=== PATIENT | female | born 1950 | race American Indian/Alaskan Native ===

== ENCOUNTER 2022-06-24 15:49 | Inpatient (IN) | payer MEDICARE ==
[2022-06-24] MEDS ORDERED: cloNIDine 0.2 MG TAB PO ONE (16:40)
--- NOTE | 2022-06-24 16:41 | Emergency Department Report ---
HPI - General Chief Complaint: Dyspnea/Respdistress Time Seen by Provider: 06/24/22 16:14 - HPI HPI: Room 6 The patient is a 72-year-old female present with a chief complaint of chest pain and shortness of breath. Patient states her symptoms began 2 weeks ago with intermittent soreness across her chest associated with shortness of breath. Patient admits to diaphoresis with her chest pain but denies nausea/vomiting. Patient states she is also had a cough for the past 2 weeks has been nonproductive. Patient admits to subjective fever at home. Patient went to urgent care facility today was found to be hypoxic to 71% on room air. EMS was called and arrived to supplied supplemental O2. In the ED the patient states she currently feels okay. Patient has a history of end-stage renal disease and states she was last dialyzed yesterday ED Past Medical Hx - Past Medical History Hx Hypertension: Yes Hx Renal Disease: Yes (ESRD HD q. T, TH, SAT) - Surgical History Additional Surgical History: Left upper extremity fistula, left knee replacement, right hip repair - Family History Family history: no significant - Social History Smoking Status: Never Smoker Substance Use Type: None (Denies illicit drug use) ED Review of Systems ROS: Stated complaint: SOB/CHEST PAIN Other details as noted in HPI Constitutional: diaphoresis, fever (Subjective) Eyes: denies: eye pain Respiratory: cough, shortness of breath Cardiovascular: chest pain Endocrine: no symptoms reported Gastrointestinal: denies: nausea, vomiting Musculoskeletal: denies: back pain Neurological: denies: headache Physical Exam - Physical Exam Vital Signs: Vital Signs 06/24/22 16:10 Temperature 97.6 F Pulse Rate 78 Respiratory 14 Rate Blood Pressure 190/90 [Left] O2 Sat by Pulse 95 Oximetry Physical Exam: GENERAL: The patient is well-developed well-nourished female lying on stretcher not appearing to be in acute distress. [] HEENT: Normocephalic. Atraumatic. Extraocular motions are intact. Patient has moist mucous membranes. NECK: Supple. Trachea midline CHEST/LUNGS: Diminished at the bases bilaterally. There is no respiratory distress noted. HEART/CARDIOVASCULAR: Regular. There is no tachycardia. There is no gallop rub or murmur. ABDOMEN: Abdomen is soft, nontender. Patient has normal bowel sounds. There is no abdominal distention. SKIN: There is no rash. There is no edema. There is no diaphoresis. NEURO: The patient is awake, alert, and oriented. The patient is cooperative. The patient has no focal neurologic deficits. The patient has normal speech. G CS 15 MUSCULOSKELETAL: There is no evidence of acute injury. ED Course Vital Signs 06/24/22 16:10 Temperature 97.6 F Pulse Rate 78 Respiratory 14 Rate Blood Pressure 190/90 [Left] O2 Sat by Pulse 95 Oximetry ED Medical Decision Making - Lab Data Result diagrams: 06/24/22 16:46 06/24/22 16:46 Laboratory Tests 06/24/22 06/24/22 06/24/22 16:46 16:46 16:46 WBC 6.2 RBC 3.66 Hgb 10.5 Hct 32.6 MCV 89 MCH 29 MCHC 32 RDW 16.3 H Plt Count 279 Lymph % (Auto) 14.4 [place] % (Auto) 11.0 H Eos % (Auto) 4.3 Baso % (Auto) 0.4 Lymph # (Auto) 0.9 L [place] # (Auto) 0.7 Eos # (Auto) 0.3 Baso # (Auto) 0.0 Seg Neutrophils % 69.9 Seg Neutrophils # 4.3 PT 15.2 H INR 1.08 ABG pH ABG pCO2 ABG pO2 ABG HCO3 ABG O2 Saturation ABG O2 Content ABG Base Excess ABG Hemoglobin ABG Carboxyhemoglobin ABG Methemoglobin Oxyhemoglobin FiO2 Sodium 140 Potassium 4.7 Chloride 96.1 L Carbon Dioxide 31 H Anion Gap 18 BUN 26 H Creatinine 7.0 H Estimated GFR 7 BUN/Creatinine Ratio 4 Glucose 102 H Calcium 10.1 Total Creatine Kinase 43 CK-MB (CK-2) 2.0 CK-MB (CK-2) Rel Index 4.6 H Troponin T 0.056 H 06/24/22 18:19 WBC RBC Hgb Hct MCV MCH MCHC RDW Plt Count Lymph % (Auto) [place] % (Auto) Eos % (Auto) Baso % (Auto) Lymph # (Auto) [place] # (Auto) Eos # (Auto) Baso # (Auto) Seg Neutrophils % Seg Neutrophils # PT INR ABG pH 7.462 H ABG pCO2 44.7 ABG pO2 46.6 L ABG HCO3 31.2 H ABG O2 Saturation 80.5 L ABG O2 Content 9.8 ABG Base Excess 6.7 H ABG Hemoglobin 8.9 L ABG Carboxyhemoglobin 2.1 ABG Methemoglobin 0.5 Oxyhemoglobin 78.4 L FiO2 21 Sodium Potassium Chloride Carbon Dioxide Anion Gap BUN Creatinine Estimated GFR BUN/Creatinine Ratio Glucose Calcium Total Creatine Kinase CK-MB (CK-2) CK-MB (CK-2) Rel Index Troponin T - Differential Diagnosis ACS, pericarditis, GERD, pneumonia, bronchitis, respiratory failure Critical care attestation.: If time is entered above; I have spent that time in minutes in the direct care of this critically ill patient, excluding procedure time. ED Disposition Clinical Impression: Hypoxia, Shortness of breath, Pneumonia Disposition: ADMITTED INPATIENT Is pt being admited?: Yes Does the pt Need Aspirin: Yes Condition: Fair Instructions: Bacterial Pneumonia (ED) Time of Disposition: 18:42 (Care transferred to hospitalist (Dr. Isaac))
[2022-06-24 16:58] LABS: Basophils % (Auto) 0.4 % (0.0-1.8); Eosinophils # (Auto) 0.3 K/mm3 (0.0-0.4); Eosinophils % (Auto) 4.3 % (0.0-4.3); Hematocrit 32.6 % (30.3-42.9); Hemoglobin 10.5 gm/dl (10.1-14.3); Lymphocytes # (Auto) 0.9 K/mm3 (1.2-5.4); Lymphocytes % (Auto) 14.4 % (13.4-35.0); Mean Corpuscular HGB Conc 32 % (30-34); Mean Corpuscular Volume 89 fl (79-97); Monocytes # (Auto) 0.7 K/mm3 (0.0-0.8); Platelet Count 279 K/mm3 (140-440); Red Blood Count 3.66 M/mm3 (3.65-5.03); Red Cell Distribution Width 16.3 % (13.2-15.2)
[2022-06-24 17:07] LABS: INR 1.08 (0.87-1.13)
--- NOTE | 2022-06-24 17:19 | XRay Report ---
CHEST 1 VIEW INDICATION: chest pain. COMPARISON: 07/19/2018 FINDINGS: SUPPORT DEVICES: None. HEART: Within normal limits. LUNGS/PLEURA: Mild patchy left basilar airspace disease with clear right lung. ADDITIONAL FINDINGS: None. IMPRESSION: 1. Lung findings as above. Signer Name: Tito Jones MD Signed: 06/24/2022 5:14 PM Workstation Name: [id number]
[2022-06-24 17:46] LABS: Calcium 10.1 mg/dL (8.4-10.2)
[2022-06-24 18:32] LABS: ABG Base Excess 6.7 mmol/L (-2.0-3.0); ABG HCO3 31.2 mmol/L (20.0-26.0); ABG Methemoglobin 0.5 % (0.0-1.5); ABG Oxygen Saturation 80.5 % (95.0-99.0); ABG PCO2 44.7 mm Hg; ABG PH 7.462 pH Units (7.350-7.450); ABG PO2 46.6 mm Hg (80.0-90.0)
[2022-06-24] MEDS ORDERED: cefTRIAXone/NS 1 GM/50 ML 1 GM/50 ML BAG IV ONE (18:39)
[2022-06-24] MEDS ORDERED: AZITHROMYCIN/NS 500 MG/250 ML 500 MG/250 ML BAG IV ONE (18:39)
--- NOTE | 2022-06-24 18:45 | History and Physical Report ---
History of Present Illness Chief complaint: I am short of breath and I feel tired History of present illness: 72 YO Female with ESRD on HD(T,R,Sa), HTN, OA presents to ED for evaluation. Patient reports "I am short of breath, and I feel tired". Patient states that over the past 2 weeks she has experienced the aforementioned symptoms with worsening symptoms over the same timeframe. Patient acknowledges dry cough, subjective fever, shortness of breath. EMS was notified and upon arrival the patient was found to be in distress with a pulse oximetry of 71% on room air. Patient was placed on supplemental oxygen and transported to [facility] for further care and evaluation of the aforementioned symptoms. The patient was seen and evaluated in the emergency department. All lab and imaging studies reviewed. Patient found to have a pulse oximetry of 82% on room air which is consistent with acute hypoxemic respiratory failure. Chest x-ray revealed left-sided pneumonia. Patient also found to have end-stage renal disease, as well as solid hypertension. Patient admitted to medical floor and initiated on pneumonia protocol as well as coronavirus protocol. Nephrology team consulted in ED. Patient knowledges subjective fever but denies chills, chest pain, palpitation, skin rash, recent contact, known exposure to COVID-19. No prior admission for review. No medication listed at time of admission for reconciliation. Advanced care planning conducted in ED. Past History Past Medical History: arthritis, ESRD, hypertension Past Surgical History: total hip replacement, total knee replacement, Other (Dialysis access) Social history: , lives with family. denies: smoking, alcohol abuse, prescription drug abuse Family history: hypertension Medications and Allergies Allergies Allergy/AdvReac Type Severity Reaction Status Date / Time No Known Allergies Allergy Verified 06/24/22 16:12 Active Meds: Active Medications Azithromycin (Zithromax/Ns) 500 mg in 250 mls @ 250 mls/hr IV ONCE ONE; Protocol Stop: 06/24/22 19:38 Ceftriaxone Sodium (Rocephin/Ns 1 Gm/50 Ml) 1 gm in 50 mls @ 100 mls/hr IV ONCE ONE; Protocol Stop: 06/24/22 19:08 Review of Systems Constitutional: fever, weakness, malaise, no weight loss, no weight gain Ears, nose, mouth and throat: no ear pain, no ear discharge, no tinnitis, no decreased hearing Cardiovascular: shortness of breath, no chest pain Respiratory: cough, shortness of breath, no cough with sputum, no excessive sputum, no hemoptysis Gastrointestinal: no abdominal pain, no nausea, no vomiting, no diarrhea Genitourinary Female: no pelvic pain, no flank pain, no dysuria, no urinary frequency, no urgency Rectal: no pain, no incontinence, no bleeding Musculoskeletal: no neck stiffness, no neck pain, no shooting arm pain, no arm numbness/tingling, no low back pain Integumentary: no rash, no pruritis, no redness, no sores, no wounds Neurological: no head injury, no transient paralysis, no paralysis, no weakness, no parathesias, no numbness Psychiatric: no anxiety, no memory loss, no change in sleep habits, no sleep disturbances, no insomnia, no hypersomnia, no change in appetite, no change in libido Endocrine: no cold intolerance, no heat intolerance, no polydipsia, no excessive sweating Hematologic/Lymphatic: no easy bruising, no easy bleeding, no lymphedema Allergic/Immunologic: no allergic rhinitis, no wheezing, no angioedema Exam - Constitutional Vitals: Temp Pulse Resp BP Pulse Ox 97.6 F 78 14 190/90 95 06/24/22 16:10 06/24/22 16:10 06/24/22 16:10 06/24/22 16:10 06/24/22 16:10 General appearance: Present: mild distress - EENT Eyes: Present: PERRL ENT: hearing intact, clear oral mucosa - Neck Neck: Present: supple, normal ROM - Respiratory Respiratory effort: labored Respiratory: left: rhonchi, bilateral: diminished - Cardiovascular Heart Sounds: Present: S1 & S2. Absent: rub, click - Extremities Extremities: pulses symmetrical, No edema Peripheral Pulses: within normal limits - Abdominal General gastrointestinal: Present: soft, non-tender, non-distended, normal bowel sounds Female genitourinary: Present: normal - Integumentary Integumentary: Present: clear, warm, dry - Musculoskeletal Musculoskeletal: gait normal, strength equal bilaterally - Psychiatric Psychiatric: appropriate mood/affect, intact judgment & insight - Neurologic Neurologic: CNII-XII intact, moves all extremities HEART Score - HEART Score Troponin: Troponin T 0.056 ng/mL (0.00-0.029) H 06/24/22 16:46 Results - Labs CBC & Chem 7: 06/24/22 16:46 06/24/22 16:46 Labs: Abnormal lab results 06/24/22 06/24/22 06/24/22 Range/Units 16:46 16:46 16:46 RDW 16.3 H (13.2-15.2) % [place] % (Auto) 11.0 H (0.0-7.3) % Lymph # (Auto) 0.9 L (1.2-5.4) K/mm3 PT 15.2 H (12.2-14.9) Sec. ABG pH (7.350-7.450) pH Units ABG pO2 (80.0-90.0) mm Hg ABG HCO3 (20.0-26.0) mmol/L ABG O2 Saturation (95.0-99.0) % ABG Base Excess (-2.0-3.0) mmol/L ABG Hemoglobin (12.0-16.0) gm/dl Oxyhemoglobin (95.0-99.0) % Chloride 96.1 L (98-107) mmol/L Carbon Dioxide 31 H (22-30) mmol/L BUN 26 H (7-17) mg/dL Creatinine 7.0 H (0.6-1.2) mg/dL Glucose 102 H (65-100) mg/dL CK-MB (CK-2) Rel Index 4.6 H (0-4) Troponin T 0.056 H (0.00-0.029) ng/mL 06/24/22 Range/Units 18:19 RDW (13.2-15.2) % [place] % (Auto) (0.0-7.3) % Lymph # (Auto) (1.2-5.4) K/mm3 PT (12.2-14.9) Sec. ABG pH 7.462 H (7.350-7.450) pH Units ABG pO2 46.6 L (80.0-90.0) mm Hg ABG HCO3 31.2 H (20.0-26.0) mmol/L ABG O2 Saturation 80.5 L (95.0-99.0) % ABG Base Excess 6.7 H (-2.0-3.0) mmol/L ABG Hemoglobin 8.9 L (12.0-16.0) gm/dl Oxyhemoglobin 78.4 L (95.0-99.0) % Chloride (98-107) mmol/L Carbon Dioxide (22-30) mmol/L BUN (7-17) mg/dL Creatinine (0.6-1.2) mg/dL Glucose (65-100) mg/dL CK-MB (CK-2) Rel Index (0-4) Troponin T (0.00-0.029) ng/mL Assessment and Plan - Patient Problems (1) Acute hypoxemic respiratory failure Current Visit: Yes Status: Acute Plan to address problem: Chest x-ray, supplemental oxygen, pulse oximetry, nebulizer therapy, pulmonary toilet. Noninvasive positive pressure ventilation as clinically indicated. Will consider high flow supplemental oxygen if patient is unable to maintain pulse oximetry on supplemental oxygen via nasal cannula. (2) Pneumonia Current Visit: Yes Status: Acute Plan to address problem: Pneumonia protocol: Chest x-ray, CBC, CMP, supplemental oxygen, pulse oximetry, nebulizer therapy, IV antibiotic therapy. (3) Suspected 2019-nCoV infection Current Visit: Yes Status: Acute Plan to address problem: COVID-19 protocol: Vitamin C therapy, vitamin D therapy, zinc therapy, prophylactic anticoagulation, supplemental oxygen, pulse oximetry, nebulizer therapy, IV steroid therapy. IV antibiotic therapy. (4) End stage renal disease Current Visit: Yes Status: Acute Plan to address problem: Nephrology team consulted in ED, dialysis as per renal team. Strict I's/O, mon itoring output every shift monitor daily weight, afterload reduction, blood pressure control, dialysis as per renal team, avoid nephrotoxic agents. (5) Accelerated hypertension Current Visit: Yes Status: Acute Plan to address problem: Monitor blood pressure every shift, continue medical management, IV hydralazine every 6 hours as needed for systolic blood pressure greater than equal 155 mmHg. (6) DVT prophylaxis Current Visit: Yes Status: Acute Plan to address problem: SCDs bilateral lower extremities while in bed, prophylactic anticoagulation (7) Advance care planning Current Visit: Yes Status: Acute Plan to address problem: Disease education conducted, care plan discussed, diagnoses discussed, prognosis discussed, patient is full code. Patient and acknowledged understanding and agreement with care plan, +30 minutes. (8) Preventative health care Current Visit: Yes Status: Acute Plan to address problem: Patient counseled regarding home safety precautions, outpatient follow-up with primary care physician for all age and risk factor appropriate screening test. +30 minutes.
[2022-06-24] MEDS ORDERED: ONDANSETRON 4 MG/2 ML INJ IV PRN (19:15)
[2022-06-24] MEDS ORDERED: ALBUTEROL 2.5 MG/3 ML NEBU IH PRN (19:15)
[2022-06-24] MEDS ORDERED: ACETAMINOPHEN 325 MG TAB PO PRN (19:15)
[2022-06-24] MEDS ORDERED: MORPHINE 4 MG/1 ML INJ IV PRN (19:15)
[2022-06-24 19:54] LABS: Chol/HDL Ratio 1.89 %
[2022-06-24] MEDS: cefTRIAXone/NS 2 GM/100 ML 2 GM/100 ML BAG IV SCH (21:01)
[2022-06-24] MEDS: methylPREDNISolone Sod Succinate 40 MG/1 ML INJ IV SCH (21:01)
[2022-06-25] MEDS: HEPARIN 5,000 UNIT/1 ML VIAL SUB-Q SCH ×3 (00:18→22:01)
[2022-06-25] MEDS: ASCORBIC ACID 500 MG TAB PO SCH ×3 (00:19→22:01)
[2022-06-25] MEDS: ZINC SULFATE 220 MG CAP PO SCH ×3 (00:19→22:01)
[2022-06-25] MEDS: methylPREDNISolone Sod Succinate 40 MG/1 ML INJ IV SCH ×3 (05:47→22:02)
[2022-06-25 07:25] LABS: Albumin 4.4 g/dL (3.9-5); Calcium 9.9 mg/dL (8.4-10.2)
--- NOTE | 2022-06-25 08:28 | Consultation ---
History of Present Illness - Reason for Consult Consult date: 06/25/22 end stage renal disease - History of Present Illness The patient is a 72 YO female with history of HTN, Anemia, OA and ESRD on HD(TTS) who presented to [facility] ED 06/24/22 with c/o short of breath and feeling tired for the past 2 weeks. Patient acknowledges dry cough and subjective fever. Patient denies chest pain, palpitation, skin rash, N, V, D, abd pain ot leg swelling. Upon EMS arrival the patient was found with a pulse oximetry of 71% on room air. Patient was placed on supplemental oxygen. Chest x-ray revealed left-sided pneumonia. Nephrology consulted for Esrd management. Past History Past Medical History: anemia, arthritis, dialysis, ESRD, hypertension Past Surgical History: total hip replacement, total knee replacement, Other (Dialysis access) Social history: , lives with family. denies: smoking, alcohol abuse, prescription drug abuse Family history: hypertension Medications and Allergies Allergies Allergy/AdvReac Type Severity Reaction Status Date / Time Sulfa (Sulfonamide Allergy Severe Hives Verified 06/25/22 14:48 Antibiotics) Home Medications Medication Instructions Recorded Confirmed Last Taken Type Desipramine HCl 25 mg PO QDAY 06/25/22 06/25/22 Unknown History Gabapentin [Neurontin] 100 mg PO BID 06/25/22 06/25/22 Unknown History Metoprolol Xl [Metoprolol 100 mg PO QDAY 06/25/22 06/25/22 Unknown History SUCCINATE ER TAB] NIFEdipine [Nifedipine ER] 90 mg PO BID 06/25/22 06/25/22 Unknown History Sevelamer Carbonate [Renvela] 2,400 mg PO TIDWM 06/25/22 06/25/22 Unknown History Active Meds: Active Medications Acetaminophen (Acetaminophen 325 Mg Tab) 650 mg PO Q4H PRN PRN Reason: Pain MILD(1-3)/Fever >100.5/JAIN Albuterol (Albuterol 2.5 Mg/3 Ml Nebu) 2.5 mg IH Q4HRT PRN PRN Reason: Shortness Of Breath Ascorbic Acid (Ascorbic Acid 500 Mg Tab) 500 mg PO BID RUDOLPH Last Admin: 06/25/22 00:19 Dose: 500 mg Azithromycin (Azithromycin 250 Mg Tab) 500 mg PO QDAY [facility]; Protocol Cholecalciferol (Cholecalciferol (Vit D3) 1000 Unit (25 Mcg) Tab) 1,000 unit PO QDAY [facility] Heparin Sodium (Porcine) (Heparin 5,000 Unit/1 Ml Vial) 5,000 unit SUB-Q Q12HR [facility] Last Admin: 06/25/22 00:18 Dose: 5,000 unit Hydralazine HCl (Hydralazine 20 Mg/1 Ml Inj) 10 mg IV Q6HR PRN PRN Reason: Hypertension Ceftriaxone Sodium (Rocephin/Ns 2 Gm/100 Ml) 2 gm in 100 mls @ 200 mls/hr IV Q24H [facility]; Protocol Last Infusion: 06/25/22 00:20 Dose: Infused Methylprednisolone Sodium Succinate (Methylprednisolone Sod Succinate 40 Mg/1 Ml Inj) 40 mg IV Q8H [facility] Last Admin: 06/25/22 05:47 Dose: 40 mg Morphine Sulfate (Morphine 4 Mg/1 Ml Inj) 2 mg IV Q8H PRN PRN Reason: Pain , Severe (7-10) Ondansetron HCl (Ondansetron 4 Mg/2 Ml Inj) 4 mg IV Q8H PRN PRN Reason: Nausea And Vomiting Oxycodone/Acetaminophen (Oxycodone /Acetaminophen 5-325mg Tab) 1 tab PO Q16H PRN PRN Reason: Pain, Moderate (4-6) Sodium Chloride (Sodium Chloride 0.9% 10 Ml Flush Syringe) 10 ml IV BID [facility] Last Admin: 06/25/22 00:21 Dose: 10 ml Sodium Chloride (Sodium Chloride 0.9% 10 Ml Flush Syringe) 10 ml IV PRN PRN PRN Reason: LINE FLUSH Stop: 06/29/22 18:45 Zinc Sulfate (Zinc Sulfate 220 Mg Cap) 220 mg PO BID [facility] Last Admin: 06/25/22 00:19 Dose: 220 mg Review of Systems All systems: negative Exam - Vital Signs Vital signs: Vital Signs Temp Pulse Resp BP Pulse Ox 97.6 F 78 14 190/90 95 06/24/22 16:10 06/24/22 16:10 06/24/22 16:10 06/24/22 16:10 06/24/22 16:10 Results - Lab Results 06/24/22 16:46 06/25/22 06:51 Most recent lab results ABG pH 7.462 pH Units (7.350-7.450) H 06/24/22 18:19 ABG pCO2 44.7 mm Hg 06/24/22 18:19 ABG pO2 46.6 mm Hg (80.0-90.0) L 06/24/22 18:19 ABG HCO3 31.2 mmol/L (20.0-26.0) H 06/24/22 18:19 ABG O2 Saturation 80.5 % (95.0-99.0) L 06/24/22 18:19 Calcium 9.9 mg/dL (8.4-10.2) 06/25/22 06:51 Assessment and Plan 1. ESRD: Patient is on maintenance HD. Last outpatient HD 06/23. Meds dosage based on GFR. Hemodialysis: today. 2. FEN: Hyperkalemia, HD today. UF with HD as tolerated. Monitor lytes and volume status. 3. L sided PNA: Per protocol. Covid negative. 4. Acute hypoxemic respiratory failure, POA: Likely 2/2 PNA. Covid negative. Supplemental oxygen, nebulizer therapy, pulmonary toilet. 5. Normocytic anemia: Monitor H&H, transfusion if needed. Epogen with HD. 6. Hypertension. 7. Elevated bl glucose: Monitor. Subjective: Patient was seen and examined at the bedside. Examination: General appearance: well-developed, well nourished, no distress HEENT: ATNC, no icterus Neck: trachea midline Respiratory: faint rales Cardiology: regular, S1S2, no murmur Gastrointestinal: soft, normoactive bowel sounds, not tender, ND Integumentary: no rash Neurologic: AO, conversing, able to move extremities Ext: no edema noted Hemodialysis access: L arm AVF
[2022-06-25] MEDS ORDERED: SODIUM CHLORIDE 0.9% 100 ML IV PRN (09:00)
[2022-06-25] MEDS: CHOLECALCIFEROL (VIT D3) 1000 UNIT (25 mcg) TAB PO SCH (09:17)
[2022-06-25] MEDS: AZITHROMYCIN 250 MG TAB PO SCH (09:17)
[2022-06-25] MEDS: oxyCODONE /ACETAMINOPHEN 5-325MG TAB PO PRN (09:20)
[2022-06-25] MEDS ORDERED: HEPARIN 10,000 UNITS/10 ML VIAL IV PRN (09:30)
[2022-06-25 10:34] LABS: Hepatitis B Surface Antigen Non-Reactive (Negative); Hepatitis C Virus Antibody Non-Reactive (NonReactive)
--- NOTE | 2022-06-25 16:21 | Progress Note ---
Assessment and Plan 72 YO Female with ESRD on HD(T,R,Sa), HTN, OA presents to ED for short of breath, and feeling tired. Patient found to have a pulse oximetry of 82% on room air which is consistent with acute hypoxemic respiratory failure. Chest x-ray revealed left-sided pneumonia. Admitted for further Mx. 06/25: neg for COVID, cont iv abx. nephrology consulted, pending HD Assessment and Plan: -- Acute hypoxemic respiratory failure likely due to LLL PNA cont supplemental oxygen, pulse oximetry, nebulizer therapy, pulmonary toilet. Noninvasive positive pressure ventilation as clinically indicated. Will consider high flow supplemental oxygen if patient is unable to maintain pulse oximetry on supplemental oxygen via nasal cannula. --LLL Pneumonia Pneumonia protocol: Chest x-ray, CBC, CMP, supplemental oxygen, pulse oximetry, nebulizer therapy, IV antibiotic therapy. -- Suspected 2019-nCoV infection ruled out with neg test -- End stage renal disease Nephrology team consulted in ED, dialysis as per renal team. Strict I's/O, monitoring output every shift monitor daily weight, afterload reduction, blood pressure control, dialysis as per renal team, avoid nephrotoxic agents. -- Accelerated hypertension Monitor blood pressure every shift, continue medical management, IV hydralazine every 6 hours as needed for systolic blood pressure greater than equal 155 mmHg. -- DVT prophylaxis SCDs bilateral lower extremities while in bed, prophylactic anticoagulation --Advance care planning Disease education conducted, care plan discussed, diagnoses discussed, prognosis discussed, patient is full code. Patient and acknowledged understanding and agreement with care plan, +30 minutes. -- Preventative health care Patient counseled regarding home safety precautions, outpatient follow-up with primary care physician for all age and risk factor appropriate screening test. +30 minutes. Subjective Date of service: 06/25/22 Interval history: Patient seen and examined. Medical records and medication list reviewed. No acute event overnight noted by the RN. Patient c/o exertional difficulty breathing and cough. Patient is tolerating diet. neg for COVID Discussed plan of care at bedside with patient. Objective - Exam Narrative Exam: GENERAL: elderly WF lying on bed appeared to be in no discomfort. HEENT: Normocephalic. Atraumatic. No conjunctival congestion or icterus. Patient has moist mucous membranes. NECK: Supple. Trachea midline. CHEST/LUNGS:diminished BS auscultated bilaterally, on NC O2 HEART/CARDIOVASCULAR: Regular in rate and rhythm. S1 and S2 positive. ABDOMEN: Abdomen is soft, nontender. Patient has normal bowel sounds. SKIN: There is no rash. Warm and dry. NEURO: No focal motor deficit. Follows command. MUSCULOSKELETAL: No joint effusion or tenderness. EXTRIMITY: No edema, no cyanosis or clubbing. PSYCH: Cooperative. - Constitutional Vitals: Vital Signs - 12hr 06/25/22 06/25/22 06/25/22 09:10 10:00 10:22 Temperature 97.7 F Pulse Rate 70 Respiratory 16 Rate Blood Pressure 188/85 O2 Sat by Pulse 98 100 97 Oximetry O2 Sat by Pulse Oximetry [ Bilateral Throughout] 06/25/22 14:39 Temperature Pulse Rate Respiratory Rate Blood Pressure O2 Sat by Pulse Oximetry O2 Sat by Pulse 99 Oximetry [ Bilateral Throughout] - Labs CBC & Chem 7: 06/24/22 16:46 06/26/22 10:23 Labs: Abnormal lab results 06/24/22 06/24/22 06/24/22 Range/Units 16:46 16:46 16:46 RDW 16.3 H (13.2-15.2) % [place] % (Auto) 11.0 H (0.0-7.3) % Lymph # (Auto) 0.9 L (1.2-5.4) K/mm3 PT 15.2 H (12.2-14.9) Sec. ABG pH (7.350-7.450) pH Units ABG pO2 (80.0-90.0) mm Hg ABG HCO3 (20.0-26.0) mmol/L ABG O2 Saturation (95.0-99.0) % ABG Base Excess (-2.0-3.0) mmol/L ABG Hemoglobin (12.0-16.0) gm/dl Oxyhemoglobin (95.0-99.0) % Potassium (3.6-5.0) mmol/L Chloride 96.1 L (98-107) mmol/L Carbon Dioxide 31 H (22-30) mmol/L BUN 26 H (7-17) mg/dL Creatinine 7.0 H (0.6-1.2) mg/dL Glucose 102 H (65-100) mg/dL Alkaline Phosphatase (35-129) units/L CK-MB (CK-2) Rel Index 4.6 H (0-4) Troponin T 0.056 H (0.00-0.029) ng/mL LDL Cholesterol Direct 39 L (50-130) mg/dL HDL Cholesterol 74 H (40-59) mg/dL 06/24/22 06/25/22 Range/Units 18:19 06:51 RDW (13.2-15.2) % [place] % (Auto) (0.0-7.3) % Lymph # (Auto) (1.2-5.4) K/mm3 PT (12.2-14.9) Sec. ABG pH 7.462 H (7.350-7.450) pH Units ABG pO2 46.6 L (80.0-90.0) mm Hg ABG HCO3 31.2 H (20.0-26.0) mmol/L ABG O2 Saturation 80.5 L (95.0-99.0) % ABG Base Excess 6.7 H (-2.0-3.0) mmol/L ABG Hemoglobin 8.9 L (12.0-16.0) gm/dl Oxyhemoglobin 78.4 L (95.0-99.0) % Potassium 5.6 H (3.6-5.0) mmol/L Chloride 95.7 L (98-107) mmol/L Carbon Dioxide (22-30) mmol/L BUN 32 H (7-17) mg/dL Creatinine 8.2 H (0.6-1.2) mg/dL Glucose 182 H (65-100) mg/dL Alkaline Phosphatase 259 H (35-129) units/L CK-MB (CK-2) Rel Index (0-4) Troponin T (0.00-0.029) ng/mL LDL Cholesterol Direct (50-130) mg/dL HDL Cholesterol (40-59) mg/dL HEART Score - HEART Score Troponin: Troponin T 0.056 ng/mL (0.00-0.029) H 06/24/22 16:46
[2022-06-25] MEDS: cefTRIAXone/NS 2 GM/100 ML 2 GM/100 ML BAG IV SCH (22:02)
[2022-06-26] MEDS: methylPREDNISolone Sod Succinate 40 MG/1 ML INJ IV SCH ×3 (05:58→22:35)
[2022-06-26] MEDS: hydrALAZINE 20 MG/1 ML INJ IV PRN ×2 (05:59→22:41)
--- NOTE | 2022-06-26 09:23 | Progress Note ---
Assessment and Plan 1. ESRD: Patient is on maintenance HD. Last outpatient HD 06/23. Meds dosage based on GFR. Hemodialysis: 06/25. 2. FEN: Hyperkalemia, on HD. UF with HD as tolerated. Monitor lytes and volume status. 3. L sided PNA: Per protocol. Covid negative. 4. Acute hypoxemic respiratory failure, POA: Likely 2/2 PNA. Covid negative. Supplemental oxygen, nebulizer therapy, pulmonary toilet. 5. Normocytic anemia: Monitor H&H, transfusion if needed. Epogen with HD. 6. Hypertension. 7. Elevated bl glucose: Monitor. Subjective: Patient was seen and examined at the bedside. Doing ok. Family member at the bedside. Examination: General appearance: well-developed, well nourished, no distress HEENT: ATNC, no icterus Neck: trachea midline Respiratory: faint rales Cardiology: regular, S1S2, no murmur Gastrointestinal: soft, normoactive bowel sounds, not tender, ND Integumentary: no rash Neurologic: AO, conversing, able to move extremities Ext: no edema noted Hemodialysis access: L arm AVF Subjective Date of service: 06/26/22 Objective - Vital Signs Vital signs: Vital Signs - 12hr 06/25/22 06/26/22 06/26/22 22:00 05:33 05:59 Temperature 97.9 F Pulse Rate 65 65 Respiratory 16 Rate Blood Pressure 169/79 169/4 Blood Pressure [Left] O2 Sat by Pulse 96 99 Oximetry 06/26/22 06:00 Temperature Pulse Rate 65 Respiratory Rate Blood Pressure Blood Pressure 169/79 [Left] O2 Sat by Pulse Oximetry - Lab 06/24/22 16:46 06/26/22 10:23 Most recent lab results ABG pH 7.462 pH Units (7.350-7.450) H 06/24/22 18:19 ABG pCO2 44.7 mm Hg 06/24/22 18:19 ABG pO2 46.6 mm Hg (80.0-90.0) L 06/24/22 18:19 ABG HCO3 31.2 mmol/L (20.0-26.0) H 06/24/22 18:19 ABG O2 Saturation 80.5 % (95.0-99.0) L 06/24/22 18:19 Calcium 9.9 mg/dL (8.4-10.2) 06/25/22 06:51 Medications & Allergies - Medications Allergies/Adverse Reactions: Allergies Sulfa (Sulfonamide Antibiotics) Allergy (Severe, Verified 06/25/22 14:48) Hives sulfa/sulfur containing products Home Medications: Home Medications Medication Instructions Recorded Confirmed Last Taken Type Desipramine HCl 25 mg PO QDAY 06/25/22 06/25/22 Unknown History Gabapentin [Neurontin] 100 mg PO BID 06/25/22 06/25/22 Unknown History Metoprolol Xl [Metoprolol 100 mg PO QDAY 06/25/22 06/25/22 Unknown History SUCCINATE ER TAB] NIFEdipine [Nifedipine ER] 90 mg PO BID 06/25/22 06/25/22 Unknown History Sevelamer Carbonate [Renvela] 2,400 mg PO TIDWM 06/25/22 06/25/22 Unknown History Active Medications: Generic Name Dose Route Start Last Admin Trade Name Freq PRN Reason Stop Dose Admin Acetaminophen 650 mg 06/24/22 19:15 Acetaminophen 325 Mg Tab PO Q4H PRN Pain MILD(1-3)/Fever >100.5/JAIN Albuterol 2.5 mg 06/24/22 19:15 Albuterol 2.5 Mg/3 Ml Nebu IH Q4HRT PRN Shortness Of Breath Ascorbic Acid 500 mg 06/24/22 22:00 06/25/22 22:01 Ascorbic Acid 500 Mg Tab PO 500 mg BID [facility] Administration Azithromycin 500 mg 06/25/22 10:00 06/25/22 09:17 Azithromycin 250 Mg Tab PO 06/28/22 10:01 500 mg QDAY [facility] Administration Protocol Cholecalciferol 1,000 unit 06/25/22 10:00 06/25/22 09:17 Cholecalciferol (Vit D3) 1000 Unit (25 Mcg) Tab PO 1,000 unit QDAY [facility] Administration Heparin Sodium (Porcine) 5,000 unit 06/24/22 22:00 06/25/22 22:01 Heparin 5,000 Unit/1 Ml Vial SUB-Q 5,000 unit Q12HR [facility] Administration Heparin Sodium (Porcine) 3,000 unit 06/25/22 09:30 Heparin 10,000 Units/10 Ml Vial IV ANURAG PRN hemodialysis Hydralazine HCl 10 mg 06/24/22 19:15 06/26/22 05:59 Hydralazine 20 Mg/1 Ml Inj IV 10 mg Q6HR PRN Administration Hypertension Ceftriaxone Sodium 2 gm in 100 mls @ 200 mls/hr 06/24/22 19:00 06/25/22 22:02 Rocephin/Ns 2 Gm/100 Ml IV 06/28/22 19:29 100 mls/hr Q24H [facility] Administration Protocol Sodium Chloride 100 mls @ 999 mls/hr 06/25/22 09:00 Nacl 0.9% IV ANURAG PRN Hypotension Methylprednisolone Sodium Succinate 40 mg 06/24/22 20:00 06/26/22 05:58 Methylprednisolone Sod Succinate 40 Mg/1 Ml Inj IV 40 mg Q8H [facility] Administration Morphine Sulfate 2 mg 06/24/22 19:15 Morphine 4 Mg/1 Ml Inj IV Q8H PRN Pain , Severe (7-10) Ondansetron HCl 4 mg 06/24/22 19:15 Ondansetron 4 Mg/2 Ml Inj IV Q8H PRN Nausea And Vomiting Oxycodone/Acetaminophen 1 tab 06/24/22 19:15 06/25/22 09:20 Oxycodone /Acetaminophen 5-325mg Tab PO 1 tab Q16H PRN Administration Pain, Moderate (4-6) Sodium Chloride 10 ml 06/24/22 22:00 06/25/22 22:03 Sodium Chloride 0.9% 10 Ml Flush Syringe IV 10 ml BID [facility] Administration Sodium Chloride 10 ml 06/24/22 18:46 Sodium Chloride 0.9% 10 Ml Flush Syringe IV 06/29/22 18:45 PRN PRN LINE FLUSH Zinc Sulfate 220 mg 06/24/22 22:00 06/25/22 22:01 Zinc Sulfate 220 Mg Cap PO 220 mg BID [facility]OL[facility] Administration
[2022-06-26] MEDS: ZINC SULFATE 220 MG CAP PO SCH ×2 (10:42→22:34)
[2022-06-26] MEDS: CHOLECALCIFEROL (VIT D3) 1000 UNIT (25 mcg) TAB PO SCH (10:43)
[2022-06-26] MEDS: AZITHROMYCIN 250 MG TAB PO SCH (10:43)
[2022-06-26] MEDS: ASCORBIC ACID 500 MG TAB PO SCH ×2 (10:43→22:34)
[2022-06-26] MEDS: HEPARIN 5,000 UNIT/1 ML VIAL SUB-Q SCH ×2 (10:44→22:34)
[2022-06-26 11:06] LABS: Calcium 9.9 mg/dL (8.4-10.2)
[2022-06-26] MEDS: INSULIN LISPRO 100 UNIT/ML SUB-Q SCH ×3 (12:30→22:35)
[2022-06-26] MEDS: oxyCODONE /ACETAMINOPHEN 5-325MG TAB PO PRN (13:20)
[2022-06-26] MEDS: cefTRIAXone/NS 2 GM/100 ML 2 GM/100 ML BAG IV SCH (22:49)
[2022-06-27] MEDS: oxyCODONE /ACETAMINOPHEN 5-325MG TAB PO PRN (01:45)
[2022-06-27] MEDS: methylPREDNISolone Sod Succinate 40 MG/1 ML INJ IV SCH ×2 (05:42→15:40)
[2022-06-27 07:05] LABS: Calcium 9.9 mg/dL (8.4-10.2)
[2022-06-27] MEDS: INSULIN LISPRO 100 UNIT/ML SUB-Q SCH ×3 (08:27→17:16)
[2022-06-27] MEDS: AZITHROMYCIN 250 MG TAB PO SCH ×2 (10:40→15:39)
[2022-06-27] MEDS: CHOLECALCIFEROL (VIT D3) 1000 UNIT (25 mcg) TAB PO SCH ×2 (10:40→15:41)
[2022-06-27] MEDS: ASCORBIC ACID 500 MG TAB PO SCH (10:40)
[2022-06-27] MEDS: HEPARIN 5,000 UNIT/1 ML VIAL SUB-Q SCH (10:40)
[2022-06-27] MEDS: ZINC SULFATE 220 MG CAP PO SCH (12:46)
--- NOTE | 2022-06-27 12:53 | Progress Note ---
Assessment and Plan 1. ESRD: Patient is on maintenance HD. Last outpatient HD 06/23. Meds dosage based on GFR. Hemodialysis: 06/25, 06/27. 2. FEN: Hyperkalemia, on HD. UF with HD as tolerated. Monitor lytes and volume status. 3. L sided PNA: Per protocol. Covid negative. 4. Acute hypoxemic respiratory failure, POA: Likely 2/2 PNA. Covid negative. Supplemental oxygen, nebulizer therapy, pulmonary toilet. 5. Normocytic anemia: Monitor H&H, transfusion if needed. Epogen with HD. 6. Hypertension. 7. Elevated bl glucose: Monitor. Subjective: Patient was seen and examined at the bedside. Doing ok. Examination: General appearance: well-developed, well nourished, no distress HEENT: ATNC, no icterus Neck: trachea midline Respiratory: ctab Cardiology: regular, S1S2, no murmur Gastrointestinal: soft, normoactive bowel sounds, not tender, ND Integumentary: no rash Neurologic: AO, conversing, able to move extremities Ext: no edema noted Hemodialysis access: L arm AVF Subjective Date of service: 06/27/22 Objective - Vital Signs Vital signs: Vital Signs - 12hr 06/27/22 06/27/22 06/27/22 01:34 01:40 01:45 Temperature Pulse Rate 89 76 Respiratory 17 17 Rate Blood Pressure 200/92 Blood Pressure 174/78 [Left] O2 Sat by Pulse 100 Oximetry O2 Sat by Pulse Oximetry [ Bilateral Throughout] 06/27/22 06/27/22 06/27/22 01:54 05:37 10:50 Temperature 99.2 F 98.4 F Pulse Rate 74 68 71 Respiratory 17 17 20 Rate Blood Pressure 200/104 Blood Pressure 171/80 160/74 [Left] O2 Sat by Pulse 100 98 Oximetry O2 Sat by Pulse 100 Oximetry [ Bilateral Throughout] 06/27/22 06/27/22 06/27/22 10:55 10:56 11:00 Temperature Pulse Rate 70 72 67 Respiratory Rate Blood Pressure 195/86 200/96 196/97 Blood Pressure [Left] O2 Sat by Pulse Oximetry O2 Sat by Pulse Oximetry [ Bilateral Throughout] 06/27/22 06/27/22 06/27/22 11:15 11:30 11:45 Temperature Pulse Rate 68 69 66 Respiratory Rate Blood Pressure 186/90 188/93 185/89 Blood Pressure [Left] O2 Sat by Pulse Oximetry O2 Sat by Pulse Oximetry [ Bilateral Throughout] 06/27/22 06/27/22 06/27/22 12:00 12:15 12:30 Temperature Pulse Rate 62 65 70 Respiratory Rate Blood Pressure 171/80 172/69 173/83 Blood Pressure [Left] O2 Sat by Pulse Oximetry O2 Sat by Pulse Oximetry [ Bilateral Throughout] 06/27/22 12:45 Temperature Pulse Rate 71 Respiratory Rate Blood Pressure 161/86 Blood Pressure [Left] O2 Sat by Pulse Oximetry O2 Sat by Pulse Oximetry [ Bilateral Throughout] - Lab 06/24/22 16:46 06/27/22 05:46 Most recent lab results ABG pH 7.462 pH Units (7.350-7.450) H 06/24/22 18:19 ABG pCO2 44.7 mm Hg 06/24/22 18:19 ABG pO2 46.6 mm Hg (80.0-90.0) L 06/24/22 18:19 ABG HCO3 31.2 mmol/L (20.0-26.0) H 06/24/22 18:19 ABG O2 Saturation 80.5 % (95.0-99.0) L 06/24/22 18:19 Calcium 9.9 mg/dL (8.4-10.2) 06/27/22 05:46 Medications & Allergies - Medications Allergies/Adverse Reactions: Allergies Sulfa (Sulfonamide Antibiotics) Allergy (Severe, Verified 06/25/22 14:48) Hives sulfa/sulfur containing products Home Medications: Home Medications Medication Instructions Recorded Confirmed Last Taken Type Desipramine HCl 25 mg PO QDAY 06/25/22 06/25/22 Unknown History Gabapentin 100 mg PO BID 06/25/22 06/25/22 Unknown History Metoprolol Xl [Metoprolol 100 mg PO QDAY 06/25/22 06/25/22 Unknown History SUCCINATE ER TAB] NIFEdipine [Nifedipine ER] 90 mg PO BID 06/25/22 06/25/22 Unknown History Sevelamer Carbonate [Renvela] 2,400 mg PO TIDWM 06/25/22 06/25/22 Unknown History Cholecalciferol Vit D3 [Vitamin D3 2,000 unit PO QDAY #30 tablet 06/27/22 Unknown Rx 1,000 UNIT TAB] hydrALAZINE [Apresoline TAB] 100 mg PO TID #90 tab 06/27/22 Unknown Rx Active Medications: Generic Name Dose Route Start Last Admin Trade Name Freq PRN Reason Stop Dose Admin Acetaminophen 650 mg 06/24/22 19:15 Acetaminophen 325 Mg Tab PO Q4H PRN Pain MILD(1-3)/Fever >100.5/JAIN Albuterol 2.5 mg 06/24/22 19:15 Albuterol 2.5 Mg/3 Ml Nebu IH Q4HRT PRN Shortness Of Breath Ascorbic Acid 500 mg 06/24/22 22:00 06/27/22 10:40 Ascorbic Acid 500 Mg Tab PO Not Given BID [facility] Azithromycin 500 mg 06/25/22 10:00 06/27/22 10:40 Azithromycin 250 Mg Tab PO 06/28/22 10:01 Not Given QDAY [facility] Protocol Cholecalciferol 1,000 unit 06/25/22 10:00 06/27/22 10:40 Cholecalciferol (Vit D3) 1000 Unit (25 Mcg) Tab PO Not Given QDAY [facility] Heparin Sodium (Porcine) 5,000 unit 06/24/22 22:00 06/27/22 10:40 Heparin 5,000 Unit/1 Ml Vial SUB-Q Not Given Q12HR [facility] Heparin Sodium (Porcine) 3,000 unit 06/25/22 09:30 Heparin 10,000 Units/10 Ml Vial IV ANURAG PRN hemodialysis Hydralazine HCl 10 mg 06/24/22 19:15 06/26/22 22:41 Hydralazine 20 Mg/1 Ml Inj IV 10 mg Q6HR PRN Administration Hypertension Ceftriaxone Sodium 2 gm in 100 mls @ 200 mls/hr 06/24/22 19:00 06/26/22 22:49 Rocephin/Ns 2 Gm/100 Ml IV 06/28/22 19:29 100 mls/hr Q24H [facility] Administration Protocol Sodium Chloride 100 mls @ 999 mls/hr 06/25/22 09:00 Nacl 0.9% IV ANURAG PRN Hypotension Insulin Human Lispro 0 unit 06/26/22 12:30 06/27/22 12:46 Insulin Lispro 100 Unit/Ml SUB-Q Not Given ACHS [facility] Protocol Methylprednisolone Sodium Succinate 40 mg 06/24/22 20:00 06/27/22 05:42 Methylprednisolone Sod Succinate 40 Mg/1 Ml Inj IV 40 mg Q8H [facility] Administration Morphine Sulfate 2 mg 06/24/22 19:15 Morphine 4 Mg/1 Ml Inj IV Q8H PRN Pain , Severe (7-10) Ondansetron HCl 4 mg 06/24/22 19:15 Ondansetron 4 Mg/2 Ml Inj IV Q8H PRN Nausea And Vomiting Oxycodone/Acetaminophen 1 tab 06/24/22 19:15 06/27/22 01:45 Oxycodone /Acetaminophen 5-325mg Tab PO 1 tab Q16H PRN Administration Pain, Moderate (4-6) Sodium Chloride 10 ml 06/24/22 22:00 06/27/22 10:40 Sodium Chloride 0.9% 10 Ml Flush Syringe IV Not Given BID [facility] Sodium Chloride 10 ml 06/24/22 18:46 Sodium Chloride 0.9% 10 Ml Flush Syringe IV 06/29/22 18:45 PRN PRN LINE FLUSH Zinc Sulfate 220 mg 06/24/22 22:00 06/27/22 12:46 Zinc Sulfate 220 Mg Cap PO Not Given BID [facility]
--- NOTE | 2022-06-27 13:32 | Progress Note ---
Assessment and Plan Assessment and Plan -- Acute hypoxemic respiratory failure likely due to LLL PNA cont supplemental oxygen, pulse oximetry, nebulizer therapy, pulmonary toilet. Noninvasive positive pressure ventilation as clinically indicated. Will consider high flow supplemental oxygen if patient is unable to maintain pulse oximetry on supplemental oxygen via nasal cannula. --LLL Pneumonia Pneumonia protocol: Chest x-ray, CBC, CMP, supplemental oxygen, pulse oximetry, nebulizer therapy, IV antibiotic therapy. -- Suspected 2019-nCoV infection ruled out with neg test -- End stage renal disease Nephrology team consulted in ED, dialysis as per renal team. Strict I's/O, monitoring output every shift monitor daily weight, afterload reduction, blood pressure control, dialysis as per renal team, avoid nephrotoxic agents. -- Accelerated hypertension Monitor blood pressure every shift, continue medical management, IV hydralazine every 3 hours as needed for systolic blood pressure greater than equal 155 mmHg. Adjusted blood pressure medications -- DVT prophylaxis SCDs bilateral lower extremities while in bed, prophylactic anticoagulation --Advance care planning Disease education conducted, care plan discussed, diagnoses discussed, prognosis discussed, patient is full code. Patient and acknowledged understanding and agreement with care plan, +30 minutes. -- Preventative health care Patient counseled regarding home safety precautions, outpatient follow-up with primary care physician for all age and risk factor appropriate screening test. +30 minutes. Subjective Date of service: 06/26/22 Principal diagnosis: Volume overload Interval history: 72 YO Female with ESRD on HD(T,R,Sa), HTN, OA presents to ED for short of breath, and feeling tired. Patient found to have a pulse oximetry of 82% on room air which is consistent with acute hypoxemic respiratory failure. Chest x-ray revealed left-sided pneumonia. Admitted for further Mx. 06/25: neg for COVID, cont iv abx. nephrology consulted, pending HD Subjective Date of service: 06/26/22 Interval history: Patient seen and examined. Medical records and medication list reviewed. No acute event overnight noted by the RN. Patient c/o exertional difficulty breathing and cough. Patient is tolerating diet. neg for COVID Discussed plan of care at bedside with patient. Objective - Constitutional Vitals: Vital Signs - 12hr 06/27/22 06/27/22 06/27/22 01:34 01:40 01:45 Temperature Pulse Rate 89 76 Respiratory 17 17 Rate Blood Pressure 200/92 Blood Pressure 174/78 [Left] O2 Sat by Pulse 100 Oximetry O2 Sat by Pulse Oximetry [ Bilateral Throughout] 06/27/22 06/27/22 06/27/22 01:54 05:37 10:50 Temperature 99.2 F 98.4 F Pulse Rate 74 68 71 Respiratory 17 17 20 Rate Blood Pressure 200/104 Blood Pressure 171/80 160/74 [Left] O2 Sat by Pulse 100 98 Oximetry O2 Sat by Pulse 100 Oximetry [ Bilateral Throughout] 06/27/22 06/27/22 06/27/22 10:55 10:56 11:00 Temperature Pulse Rate 70 72 67 Respiratory Rate Blood Pressure 195/86 200/96 196/97 Blood Pressure [Left] O2 Sat by Pulse Oximetry O2 Sat by Pulse Oximetry [ Bilateral Throughout] 06/27/22 06/27/22 06/27/22 11:15 11:30 11:45 Temperature Pulse Rate 68 69 66 Respiratory Rate Blood Pressure 186/90 188/93 185/89 Blood Pressure [Left] O2 Sat by Pulse Oximetry O2 Sat by Pulse Oximetry [ Bilateral Throughout] 06/27/22 06/27/22 06/27/22 12:00 12:15 12:30 Temperature Pulse Rate 62 65 70 Respiratory Rate Blood Pressure 171/80 172/69 173/83 Blood Pressure [Left] O2 Sat by Pulse Oximetry O2 Sat by Pulse Oximetry [ Bilateral Throughout] 06/27/22 06/27/22 06/27/22 12:45 13:00 13:15 Temperature Pulse Rate 71 68 70 Respiratory Rate Blood Pressure 161/86 179/81 172/87 Blood Pressure [Left] O2 Sat by Pulse Oximetry O2 Sat by Pulse Oximetry [ Bilateral Throughout] General appearance: Present: no acute distress, well-nourished - EENT Eyes: PERRL, EOM intact ENT: hearing intact, clear oral mucosa Ears: bilateral: normal - Neck Neck: supple, normal ROM - Respiratory Respiratory effort: normal Respiratory: bilateral: CTA - Breasts Breasts: normal - Cardiovascular Heart rate: 78 Rhythm: regular Heart Sounds: Present: S1 & S2. Absent: gallop, rub Extremities: pulses intact, No edema, normal color, Full ROM - Gastrointestinal General gastrointestinal: Present: soft, non-tender, non-distended, normal bowel sounds - Genitourinary Female genitourinary: normal - Integumentary Integumentary: clear, warm, dry - Musculoskeletal Musculoskeletal: 1, strength equal bilaterally - Neurologic Neurologic: moves all extremities - Psychiatric Psychiatric: memory intact, appropriate mood/affect, intact judgment & insight - Labs CBC & Chem 7: 06/24/22 16:46 06/27/22 05:46 Labs: Abnormal lab results 06/26/22 06/26/22 06/27/22 Range/Units 16:56 21:14 05:46 Chloride 95.5 L (98-107) mmol/L BUN 44 H (7-17) mg/dL Creatinine 7.5 H (0.6-1.2) mg/dL Glucose 186 H (65-100) mg/dL POC Glucose 337 H 140 H (70-105) mg/dL 06/27/22 Range/Units 07:15 Chloride (98-107) mmol/L BUN (7-17) mg/dL Creatinine (0.6-1.2) mg/dL Glucose (65-100) mg/dL POC Glucose 185 H (70-105) mg/dL HEART Score - HEART Score Troponin: Troponin T 0.056 ng/mL (0.00-0.029) H 06/24/22 16:46
[2022-06-27] MEDS: hydrALAZINE 20 MG/1 ML INJ IV PRN (15:39)
[2022-06-27 16:25] VITALS: BP 129/61
== END 2022-06-27 18:02 | disposition home or self-care (01) | DRG 193 ==
LOC: ED 15:49 → 3A 18:46
PROVIDERS: ADMIT Internal Medicine; ATTEND Internal Medicine
PROC: 5A1D70Z Performance of Urinary Filtration, Intermittent, Less than 6 Hours Per Day (ICD-10-PCS; principal; 2022-06-25)
PROC: 5A1D70Z Performance of Urinary Filtration, Intermittent, Less than 6 Hours Per Day (ICD-10-PCS; 2022-06-27)
DX: J18.9 Pneumonia, unspecified organism (principal); J96.01 Acute respiratory failure with hypoxia; N18.6 End stage renal disease; I12.0 Hypertensive chronic kidney disease with stage 5 chronic kidney disease or end stage renal disease; Z20.822 Contact with and (suspected) exposure to COVID-19; Z99.2 Dependence on renal dialysis; M19.90 Unspecified osteoarthritis, unspecified site; D64.9 Anemia, unspecified; Z96.649 Presence of unspecified artificial hip joint; Z96.652 Presence of left artificial knee joint; Z88.2 Allergy status to sulfonamides; Z82.49 Family history of ischemic heart disease and other diseases of the circulatory system
CPT/HCPCS: 36415; 71045; 80048; 80053; 80061; 80074; 82550; 82553; 82803; 82962; 84484; 85025; 85610; 87040; 94760; 99285; G0378; J3490; Q9967; J0360; J0456; J0696; J1644; J1815; J2920; U0003